=== PATIENT | male | born 1970 | race Caucasian/White ===

== ENCOUNTER 2016-07-30 16:39 | Emergency (ER) | payer SELFPAY ==
[~2016-07-30] VITALS: Wt 100.0 kg
[~2016-07-30 16:39] MED LIST: ATOR10TA65 PO; LISI-524 PO; PANT40TA3 PO
[2016-07-30] MEDS ORDERED: ONDANSETRON 4 MG INJ IV STA (18:00)
[2016-07-30] MEDS ORDERED: FAMOTIDINE 20 MG INJ IV STA (18:00)
[2016-07-30] MEDS ORDERED: SOD CHLORIDE 0.9% 1,000 ML IV STA (18:00)
[2016-07-30] MEDS ORDERED: LIDOCAINE/MYLANTA 40 ML BTL PO STA (18:00)
[2016-07-30 18:14] LABS: ADD SCAN DIFF NO; BASOPHIL # 0.1 10^3/ul (0.0-0.1); BASOPHILS % 0.6 % (0.0-2.0); EOSINOPHILS # 0.2 10^3/ul (0.0-0.5); EOSINOPHILS % 1.8 % (0.0-7.0); HEMATOCRIT 46.9 % (42.0-52.0); HEMOGLOBIN 15.4 g/dl (14.0-18.0); LYMPHOCYTES # 2.7 10^3/ul (0.8-2.9); LYMPHOCYTES % 27.8 % (15.0-51.0); MEAN CORPUSCULAR HEMOGLOBIN 28.2 pg (29.0-33.0); MEAN CORPUSCULAR HGB CONC 32.8 g/dl (32.0-37.0); MEAN CORPUSCULAR VOLUME 85.9 fl (82.0-101.0); MEAN PLATELET VOLUME 10.4 fl (7.4-10.4); MONOCYTE # 0.8 10^3/ul (0.3-0.9); MONOCYTES % 7.8 % (0.0-11.0); NEUTROPHIL # 5.9 10^3/ul (1.6-7.5); NEUTROPHILS % 61.7 % (39.0-77.0); PLATELET COUNT 226 10^3/UL (140-415); RED BLOOD COUNT 5.46 10^6/ul (4.70-6.10); RED CELL DISTRIBUTION WIDTH 12.8 % (11.5-14.5); WHITE BLOOD COUNT 9.6 10^3/ul (4.8-10.8)
[2016-07-30] MEDS ORDERED: OMEP20CA16 PO (18:19)
[2016-07-30 18:27] LABS: ALBUMIN 4.8 g/dl (3.3-4.9); CHLORIDE 100 mmol/L (97-110)
[2016-07-30 18:28] LABS: POTASSIUM 3.9 mmol/L (3.5-5.1); SODIUM 139 mmol/L (135-144)
[2016-07-30 18:30] LABS: ALBUMIN/GLOBULIN RATIO 1.65; ALKALINE PHOSPHATASE 83 IU/L (42-121); ANION GAP 15 (8-16); ASPARTATE AMINO TRANSFERASE 29 IU/L (15-46); BILIRUBIN,INDIRECT 0.4 mg/dl (0-1.1); BILIRUBIN,TOTAL 0.4 mg/dl (0.2-1.3); BLOOD UREA NITROGEN 11 mg/dl (7-20); CARBON DIOXIDE 28 mmol/L (21-31); CREATININE 0.87 mg/dl (0.61-1.24); TOTAL PROTEIN 7.7 g/dl (6.1-8.1)
[2016-07-30 18:31] LABS: ALANINE AMINOTRANSFERASE 45 IU/L (13-69); CALCIUM 9.2 mg/dl (8.4-10.2); GLUCOSE 108 mg/dl (70-220)
[2016-07-30 18:43] LABS: TROPONIN-I < 0.012 ng/ml (0.00-0.12)
[2016-07-30 18:48] LABS: ADD UMIC NO; URINE BILIRUBIN (Dip) NEGATIVE (NEGATIVE); URINE BLOOD (Dip) NEGATIVE (NEGATIVE); URINE COLOR LT. YELLOW (YELLOW); URINE GLUCOSE (Dip) NEGATIVE (NEGATIVE); URINE KETONES (Dip) NEGATIVE (NEGATIVE); URINE LEUKOCYTE ESTERASE (Dip) NEGATIVE (NEGATIVE); URINE NITRITE (Dip) NEGATIVE (NEGATIVE); URINE TOTAL PROTEIN (Dip) NEGATIVE (NEGATIVE); URINE UROBILINOGEN (Dip) 0.2 E.U./dL (0.1-1.0)
--- NOTE | 2016-07-30 19:27 | RADRPT ---
PROCEDURE: XR Chest. CLINICAL INDICATION: chest pain TECHNIQUE: Single frontal view of the chest was obtained COMPARISON: 04/10/2016 FINDINGS: The heart and mediastinum are within normal limits. The lungs are clear. There is no pleural effusion or pneumothorax. RPTAT: AA IMPRESSION: No acute disease. .Nickolas Marley MD, MD Date Time Electronically viewed and signed by .Nickolas Marley MD, MD on 07/30/2016 19:27 .S/
[2016-07-30] MEDS ORDERED: RANI150T9 PO (19:35)
--- NOTE | 2016-07-30 19:35 | ERA ---
ER Documentation Chief Complaint Date/Time DATE: 07/30/16 TIME: 19:33 Chief Complaint CHEST PAIN FOR 3 DAYS WITH MILD SOB. NO DIAPHORESIS. NAUSEA NO VOMITING. HPI This is a 46-year-old male who presents to the emergency room for evaluation of abdominal pain for the past 3 days. The patient states that he does have a history of gastritis, and drinks approximately 3 beers a day. The patient localizes the pain to the midportion of the abdomen describes it as a burning sensation with no radiation. He states that he has an appointment tomorrow morning at a clinic for a checkup and came to the ER today for evaluation of his abdominal pain. No nausea associated with this, no vomiting. ROS All systems reviewed and are negative except as per history of present illness. Medications Home Meds Reported Medications Omeprazole* (Omeprazole*) 20 Mg Capsule.dr, 20 MG PO DAILY, #30 CAP 07/30/16 Discontinued Scripts Pantoprazole* (Protonix*) 40 Mg Tablet.dr, 40 MG PO DAILY for 14 Days, TAB Prov:VERONA LING MD 04/10/16 Atorvastatin Calcium (Atorvastatin Calcium) 10 Mg Tablet, 10 MG PO QHS, #14 TAB Prov:VERONA LING MD 04/10/16 Lisinopril* (Zestril*) 10 Mg Tablet, 10 MG PO DAILY, #14 TAB Prov:VERONA LING MD 04/10/16 Allergies Allergies: Coded Allergies: Penicillins (Unverified Allergy, Mild, RASH, ITCHING, 07/30/16) RE-ENTERED UNCODED ALLERGY CODED PMhx/Soc History of Surgery: No Anesthesia Reaction: No Hx Neurological Disorder: Yes Hx Respiratory Disorders: No Hx Cardiac Disorders: Yes (HTN) Hx Psychiatric Problems: No Hx Miscellaneous Medical Probl: Yes (GERD) Hx Alcohol Use: Yes (after work) Hx Substance Use: No Hx Tobacco Use: No Smoking Status: Never smoker Physical Exam Vitals Vital Signs Date Time Temp Pulse Resp B/P Pulse Ox O2 Delivery O2 Flow Rate FiO2 07/30/16 16:43 98.8 76 20 180/105 98 Physical Exam INITIAL VITAL SIGNS: Reviewed by me GENERAL: The patient is well developed and appropriate for usual state of health in no apparent distress HEENT: Pupils equal, round, and reactive to light. EOMI. There is no scleral icterus. NECK: C-spine is soft and supple, there is no meningismus. There is no cervical lymphadenopathy. LUNGS: Clear to auscultation bilaterally. There are no rales, wheezes or rhonchi. HEART: Regular rate and rhythm, no murmurs, clicks, rubs or gallops. ABDOMEN: Epigastric tenderness to palpation, negative Sanchez sign, otherwise soft, non-tender, non-distended. There are bowel sounds in all four quadrants. No rebound or guarding. EXTREMITIES: There is no peripheral cyanosis or edema. No focal swelling or erythema. NEUROLOGICAL: The patient moves all four extremities with 5/5 strength. Cranial nerves II - XII are intact. Normal gait. Alert and oriented SKIN: There is no apparent rash or petechiae. HEME/LYMPHATIC: There is no evidence of excessive bruising or lymphedema. PSYCHIATRIC: The patient does not appear anxious or depressed. Result Diagram: 07/30/16 1805 07/30/16 1805 Results 24 hrs Laboratory Tests Test 07/30/16 18:05 07/30/16 18:25 White Blood Count 9.610^3/ul Red Blood Count 5.4610^6/ul Hemoglobin 15.4g/dl Hematocrit 46.9% Mean Corpuscular Volume 85.9fl Mean Corpuscular Hemoglobin 28.2pg Mean Corpuscular Hemoglobin Concent 32.8g/dl Red Cell Distribution Width 12.8% Platelet Count 04847^3/UL Mean Platelet Volume 10.4fl Neutrophils % 61.7% Lymphocytes % 27.8% Monocytes % 7.8% Eosinophils % 1.8% Basophils % 0.6% Nucleated Red Blood Cells % 0.0/100WBC Neutrophils # 5.910^3/ul Lymphocytes # 2.710^3/ul Monocytes # 0.810^3/ul Eosinophils # 0.210^3/ul Basophils # 0.110^3/ul Nucleated Red Blood Cells # 0.010^3/ul Sodium Level 139mmol/L Potassium Level 3.9mmol/L Chloride Level 100mmol/L Carbon Dioxide Level 28mmol/L Anion Gap 15 Blood Urea Nitrogen 11mg/dl Creatinine 0.87mg/dl Glucose Level 108mg/dl Calcium Level 9.2mg/dl Total Bilirubin 0.4mg/dl Direct Bilirubin 0.00mg/dl Indirect Bilirubin 0.4mg/dl Aspartate Amino Transf (AST/SGOT) 29IU/L Alanine Aminotransferase (ALT/SGPT) 45IU/L Alkaline Phosphatase 83IU/L Troponin I < 0.012ng/ml Total Protein 7.7g/dl Albumin 4.8g/dl Globulin 2.90g/dl Albumin/Globulin Ratio 1.65 Lipase 157U/L Urine Color LT. YELLOW Urine Clarity CLEAR Urine pH 7.0 Urine Specific [facility] 1.010 Urine Ketones NEGATIVE Urine Nitrite NEGATIVE Urine Bilirubin NEGATIVE Urine Urobilinogen 0.2 E.U./dL Urine Leukocyte Esterase NEGATIVE Urine Hemoglobin NEGATIVE Urine Glucose NEGATIVE% Urine Total Protein NEGATIVE Current Medications Medications (Trade) Dose Ordered Sig/Vance Route PRN Reason Start Time Stop Time Status Last Admin Dose Admin Sodium Chloride (NS) 1,000 ml @ 1,000 mls/hr Q1H STAT IV 07/30/16 18:00 07/30/16 18:59 DC 07/30/16 18:22 Ondansetron HCl (Zofran Inj) 4 mg ONCE STAT IV 07/30/16 18:00 07/30/16 18:01 DC 07/30/16 18:21 Famotidine (Pepcid Iv) 20 mg ONCE STAT IV 07/30/16 18:00 07/30/16 18:01 DC 07/30/16 18:21 Miscellaneous Medication (Gi Cocktail (2)) 40 ml ONCE STAT PO 07/30/16 18:00 07/30/16 18:01 DC 07/30/16 18:21 Procedures/MDM EKG: Rate/Rhythm: [Normal Sinus Rhythm] QRS, ST, T-waves: [No changes consistent w/ acute ischemia] Impression: [No evidence of ischemia or arrhythmia] Chest X-ray 1V Interpreted by me: Soft Tissue: No acute abnormalities Bones: No acute abnormalities Mediastinum/Cardiac Silhouette/Lungs: [No acute abnormalities] This 46-year-old male presents to the emergency room for evaluation of abdominal pain. When I evaluated this patient I did have epigastric tenderness to palpation on my exam. EKG was obtained which was nonischemic, I did obtain blood work which was normal including a troponin which was negative. Chest x- ray is clear. This patient was given Zofran, Pepcid, and GI cocktail. When I reevaluated him he states he is feeling much better at this time. He will be discharged home with a prescription for Zantac and instructions to follow-up with his clinic tomorrow morning. Differential diagnoses entertained was broad with potential high acuity. Patient has been evaluated for acute myocardial infarction, unstable angina, aortic dissection, pulmonary embolism, other intrathoracic and cardiac concerns. Ultimately the patient's evaluation is nondiagnostic. Based on the patient's lack of risk factors, as well as the patient's clinical, laboratory, and imaging data, the patient appears to be low risk for these high risk causes of chest pain. Departure Diagnosis: Primary Impression: Abdominal pain Additional Impression: Gastritis Condition: Stable DEION BROWN DO Jul 30, 2016 19:35
[2016-07-30 19:50] VITALS: BP 154/93; PULSE 63; RESP 18
== END 2016-07-30 19:50 | disposition home or self-care (01) ==
LOC: E/R 16:39
DX: R10.13 Epigastric pain (principal); K29.70 Gastritis, unspecified, without bleeding; I10 Essential (primary) hypertension
CPT/HCPCS: 36415; 71010; 80053; 81003; 83690; 84484; 85025; 93005; 96374; 96375; 99285; J2405; J7030